=== PATIENT | female | born 1985 | race Caucasian/White ===

== ENCOUNTER → 2017-03-04 | Outpatient (CLI) | payer BC ==
--- NOTE | 2017-03-04 17:12 | KCIC ---
MRI brain without contrast dated 03/04/2017. No comparison available. CLINICAL INDICATION: Frequent headaches.. TECHNIQUE: Routine multiplanar multisequence MR imaging of brain performed without the administration of intravenous contrast. FINDINGS: Ventricles and sulci are within normal limits for age. No midline shift or mass effect. Brain parenchyma is of normal signal intensity. No hemorrhage or extra-axial collection. Posterior fossa and brainstem unremarkable. No evidence of restricted diffusion abnormality. Major intracranial flow-voids are present. Postcontrast imaging was not performed. Midline structures intact. Minimal mucosal thickening of the bilateral ethmoid air cells. The visualized paranasal sinuses and mastoid air cells are otherwise clear. No apparent calvarial abnormality. IMPRESSION: No evidence of acute intracranial abnormality. Electronically signed by: Bashir Chandler MD (03/04/2017 5:09 PM) [id number]
== END | disposition home or self-care (01) ==
LOC: KCIC MRI 16:05
PROVIDERS: ATTEND Nurse Practitioner Family
DX: R51 Headache (principal)
CPT/HCPCS: 70551

== ENCOUNTER → 2017-03-13 | Outpatient (CLI) | payer BC | END | disposition home or self-care (01) | LOC: SLPLAB 18:51 | DX: G47.33 Obstructive sleep apnea (adult) (pediatric) (principal); R51 Headache; Z76.89 Persons encountering health services in other specified circumstances | CPT/HCPCS: 95810 ==